=== PATIENT | male | born 1950 | race Caucasian/White ===

== ENCOUNTER 2016-12-04 20:14 | Emergency (ER) | payer MEDICARE, OTHER ==
[~2016-12-04] VITALS: Ht 182.9 cm; Wt 95.2 kg
[2016-12-04] MEDS ORDERED: KEFLEX500 MG PO (21:16)
== END 2016-12-04 21:27 | disposition home or self-care (01) ==
LOC: ED 20:14
PROC: 0HCQXZZ Extirpation of Matter from Finger Nail, External Approach (ICD-10-PCS; principal; 2016-12-04)
DX: S60.453A Superficial foreign body of left middle finger, initial encounter (principal); Z87.891 Personal history of nicotine dependence; W22.8XXA Striking against or struck by other objects, initial encounter
CPT/HCPCS: 10120; 90471; 90715; 99283

== ENCOUNTER 2023-01-23 16:27 | Emergency (ER) | payer OTHER, MEDICARE ==
[~2023-01-23] VITALS: Ht 182.9 cm; Wt 95.2 kg
[~2023-01-23 16:27] MED LIST: KEFLEX500 MG PO
[2023-01-23] MEDS ORDERED: LISINOPRIL-HCT1 EAC2 PO (16:44)
[2023-01-23 16:54] LABS: BASOPHILS 0.9 % (0-2); EOSINOPHILS 2.8 % (0-6); HEMATOCRIT 46.4 % (35.0-50.0); HEMOGLOBIN 15.7 g/dL (12.0-18.0); LYMPHOCYTES 26.7 % (24-44); MCH 30.8 (27-36); MCHC 33.8 g/dl (30-36); MCV 91.1 fl (81-99); MONOCYTES 9.7 % (0-12); NEUTROPHILS 59.9 % (39-80); PLATELET COUNT 288 K/uL (140-440); RBC 5.09 M/ul (4.3-5.7)
[2023-01-23 17:12] LABS: ALBUMIN 3.8 g/dL (3.4-5.0); ALBUMIN/GLOBULIN RATIO 1.03 (1.1-2.4); ANION GAP 12.5 (7-21); BILIRUBIN, TOTAL 0.5 ng/dL (0.2-1.0); BUN/CREATININE RATIO 15.38 (6.0-28.6); CALCIUM 9.4 mg/dL (8.5-10.1); CREATININE, SERUM 1.04 mg/dL (0.70-1.30); MAGNESIUM 2.1 mg/dL (1.8-2.4); POTASSIUM 3.5 mmol/L (3.5-5.1); PROTEIN, TOTAL 7.5 g/dL (6.4-8.2)
[2023-01-23] MEDS ORDERED: CYCLOBENZAPRINE10 MG PO (20:03)
[2023-01-23 20:48] VITALS: BP 163/92
--- NOTE | 2023-01-24 08:03 | EKG ---
[facility] [address] [facility] [place] [address] Signed Sinus tachycardia Left axis deviation Left bundle branch block Abnormal ECG No previous ECGs available Confirmed by PAU BUCIO MD ([id number]) on 01/24/2023 8:02:54 AM Electronically Signed By: PAU BUCIO 01/24/23 0803 PATIENT NAME: GEOVANNY KEATING IZABELLA Electrocardiogram DATE OF : 46 PHYSICIAN: PAU BUCIO REPORT #: [id number] REPORT IS CONFIDENTIAL AND NOT TO BE RELEASED WITHOUT AUTHORIZATION
== END 2023-01-23 20:48 | disposition home or self-care (01) ==
LOC: ED 16:27
PROVIDERS: Family Medicine
DX: R07.89 Other chest pain (principal); Z79.899 Other long term (current) drug therapy; Z87.891 Personal history of nicotine dependence
CPT/HCPCS: 36415; 71045; 80053; 83735; 83880; 84484; 85025; 93005; 93010

== ENCOUNTER 2024-07-23 10:50 | Day surgery (SDC) | payer OTHER ==
[2024-07-17 09:15] VITALS: BP 147/83
[~2024-07-23] VITALS: Ht 182.9 cm; Wt 80.0 kg
[~2024-07-23 10:50] MED LIST changes: +ALDACTONE25 MG PO; +ASPIRIN81 MG PO; +CEFAZOLIN SODIUM 2 GM/20 ML SYR IV SCH; +CYCLOBENZAPRINE10 MG PO; +ENTRESTO 49 MG1 EACH PO; +IBLOOD GLUCOSE TEST STRIP 1 EA TEST VI PRN; +JARDIANCE10 MG PO; +LACTATED RINGER'S 1,000 ML IV SCH; +LIDOCAINE HCL 1% 5 ML SDV INJ ONE; +LISINOPRIL-HCT1 EAC2 PO; +METOPROLOL TA37.5 MG PO; +MIDAZOLAM HCL 5 MG/5 ML VIAL IV PRN; +SUPER CALCIUM600 MG PO; +VITAMIN B-12100 MCG PO; +VITAMIN D325 MC3 PO; +fentaNYL citrate 100 MCG/2 ML VIAL IV PRN
[2024-07-23 11:07] VITALS: BP 135/81
[2024-07-23] MEDS ORDERED: LIDOCAINE HCL 2% 5 ML SDV ONE (12:15)
[2024-07-23] MEDS ORDERED: propofoL 200 MG/20 ML VIAL ONE (12:15)
[2024-07-23] MEDS ORDERED: ePHEDrine sulfate 50 MG/ML AMP ONE (12:37)
--- NOTE | 2024-07-23 13:40 | NUR ---
07/23/24 1340 Tamara Bautista 1320 PT ARRIVED IN PACU SLEEPY. ABD SOFT AND PASSING FLATUS. 1330 SITTING UP IN BED. NO C/O'S. 1340 DR AT BEDSIDE TALKING TO PT. ALL QUESTIONS ANSWERED.
[2024-07-23 13:44] VITALS: BP 106/54
--- NOTE | 2024-07-23 14:37 | OR ---
[facility] [address] [place], [place] [address] Signed DATE OF OPERATION: 07/23/2024 SURGEON: Purvi Nguyễn MD PREOPERATIVE DIAGNOSES: 1. Personal history of colonic polyps in 2005 at age 56. 2. Cecal diverticulum. 3. Internal hemorrhoids. 4. Guaiac positive stool. POSTOPERATIVE DIAGNOSES: 1. 1.5 x 3 cm sessile polyp at mid to distal right colon (snare, clip x2, tattoo). 2. 3 mm and 6 mm polyps at base of cecum (hot biopsy, snare). 3. Minimal sigmoid diverticulosis. 4. Moderate internal hemorrhoids. PROCEDURE: Colonoscopy with snare polypectomy, hot biopsy and injection of tattoo. ESTIMATED BLOOD LOSS: None. INDICATIONS: Norberto is a 74-year-old gentleman, who came to me in 2005 at the age of 56 for his initial screening colonoscopy. He had a 10 mm tubulovillous adenomatous polyp at 20 cm. He had a couple of hyperplastic polyps as well. He had a diverticulum near the cecum. He also had internal hemorrhoids. We had asked him to follow up in three years. For some reason, he never came back. Part of that I think was his heart history and the COVID pandemic. More recently, a stool sample came back guaiac positive. He is also taking aspirin. He now has a pacemaker and he said his heart is much better with an ejection fraction from 25% back up to 60%. He did well on the stress test in October of 2023 without any ischemia. He said he feels much better. He still consumes three beers in a day. He has been asked to see me for a followup colonoscopy given his guaiac-positive stool sample. In the office, I gave him our brochure on colonoscopy. We reviewed the nature of the test. There is risk including, but not limited to gas bloating, crampy abdominal pain, bleeding, perforation requiring surgery, and missed diagnosis. We also reviewed the written instructions for the bowel prep line by line. We had him hold the aspirin 3 days prior to the procedure. Also because of his heart history and his daily alcohol consumption, we asked for monitored anesthesia care with propofol infusion. That worked out very well for him today. He also received some Electronically Signed By: PURVI NGUYỄN MD 07/23/24 1437 PATIENT NAME: NORBERTO KEATING OPERATIVE REPORT DATE OF : 46 REPORT #: [id number] PHYSICIAN: PURVI NGUYỄN MD PCP: ANA BANUELOS PAC REPORT IS CONFIDENTIAL AND NOT TO BE RELEASED WITHOUT AUTHORIZATION [facility] [address] [place] [id number] Signed Ancef because of his pacemaker/defibrillator. He understands an adult person has to take him home afterwards. He had expressed understanding and wished to proceed. DESCRIPTION OF PROCEDURE: Norberto was taken into the endoscopy suite and placed in the left lateral decubitus position. He was given monitored anesthesia care with propofol infusion per our nurse contract loader. A digital rectal exam was performed. No external hemorrhoids. Good sphincter tone. No masses. His prostate is somewhat small, but it is indurated. The adult colonoscope had been introduced and advanced all around into the cecum under direct visualization of the camera without difficulty. His prep was quite good. We could easily see the appendiceal orifice and the ileocecal valve. We used the snare and the hot biopsy forceps to remove the two polyps in the base of the cecum and placed them into the same specimen jar. Back in the distal right colon just before the blue discoloration for the hepatic flexure, he had a sessile polyp measuring 1.5 x 3 cm along the . It took three bites of our snare and three bites of the hot biopsy forceps to remove that completely. We captured the three large pieces in our net and brought that out for review. We went back and placed two clips back together. We then injected a tattoo as well. The scope was then withdrawn. We saw some diverticula in the sigmoid colon. They are average in size, few in number and scattered about. The rectum was unremarkable. Upon retroflexion of the scope, he does have moderate internal hemorrhoid columns. After this, the gas was suctioned out and the colonoscope removed. Norberto tolerated the procedure quite well. RECOMMENDATIONS: I will see Norberto back in my office in 7 to 14 days to review his biopsy results. Depending on the pathology report, we might consider another short interval for followup colonoscopy. Purvi Nguyễn MD ALB/MODL /[id number] cc: Purvi Nguyễn MD [facility] [place] Electronically Signed By: PURVI NGUYỄN MD 07/23/24 1437 PATIENT NAME: NORBERTO KEATING OPERATIVE REPORT DATE OF : 46 REPORT #: [id number] PHYSICIAN: PURVI NGUYỄN MD PCP: ANA BANUELOS PAC REPORT IS CONFIDENTIAL AND NOT TO BE RELEASED WITHOUT AUTHORIZATION [address] [place], [place] [address] Signed Copies: PURVI NGUYỄN MD ~ Electronically Signed By: PURVI NGUYỄN MD 07/23/24 1437 PATIENT NAME: NORBERTO KEATING OPERATIVE REPORT DATE OF : 46 REPORT #: [id number] PHYSICIAN: PURVI NGUYỄN MD PCP: ANA BANUELOS PAC REPORT IS CONFIDENTIAL AND NOT TO BE RELEASED WITHOUT AUTHORIZATION
--- NOTE | 2024-07-25 11:16 | PATH ---
[facility] [address] [place], [place] [address] Signed SPECIMEN(S): A MID CECUM COLON POLYP SPECIMEN(S): B DISTAL ASCENDING COLON POLYP SPECIMEN SOURCE: A. MID CECUM COLON POLYP B. DISTAL ASCENDING COLON POLYP CLINICAL HISTORY: Guaiac positive stool, history of polyps, polyps, diverticulosis, internal hemorrhoids FINAL PATHOLOGIC DIAGNOSIS: A. Cecum, mid, polypectomy: - Tubular adenoma B. Colon, distal ascending, polypectomy: - Tubular adenoma BRP MICROSCOPIC EXAMINATION: Histologic sections of all submitted blocks are examined by light microscopy. These findings, together with the gross examination, support the pathologic diagnosis. GROSS DESCRIPTION: A. The specimen, labeled and designated "Quique, Ayala., mid cecum polypectomy per requisition," is received in formalin and consists of 3 villanueva tissue fragments ranging from 0.2 to 0.6 cm in greatest dimension. The specimen is entirely submitted in cassette A1. B. The specimen, labeled and designated "Quique, G., distal ascending/right colon polypectomy per requisition," is received in formalin and consists of 4 villanueva tissue fragments ranging from 0.2 to 0.6 cm in greatest dimension. Also received are 2 villanueva-red polyps measuring 1 to 1.5 cm in greatest dimension. The resection margin of the smallest polyp is inked blue while the resection margin of the largest polyp is inked black. The specimens are serially sectioned and entirely submitted cassette B1 and B2. AA (under the direct supervision of a pathologist) The Gross Description was prepared using a voice recognition system. The report was reviewed for accuracy; however, sound-alike word errors, addition and/or deletions may occur. If there is any PATIENT NAME: GEOVANNY KEATING PATHOLOGY DATE OF : 46 REPORT #: [id number] PHYSICIAN: GEORGI HERNANDEZ PCP: ANA BANUELOS PAC REPORT IS CONFIDENTIAL AND NOT TO BE RELEASED WITHOUT AUTHORIZATION [facility] [address] [place], [place] [address] Signed question about this report, please contact Client Services. ADDITIONAL NOTES: Immunohistochemical and/or in situ hybridization studies if performed in this case included appropriate positive controls that reacted as expected. This test was developed and its performance characteristics determined by [facility]. It has not been cleared or approved by the U.S. Food and Drug Administration. The FDA has determined that such clearance or approval is not necessary. This test is used for clinical purposes. It should not be regarded as investigational or for research. [facility] is certified under the Clinical Laboratory Improvement Amendments of 1988 (CLIA) as qualified to perform high complexity clinical laboratory testing. PERFORMING LABORATORY: Technical component was performed by [facility], [address] [place] [address] (CLIA# [id number]). Professional interpretation was performed by [facility], [address] [place] [address] (CLIA#: [id number]). Diagnostician: Hebert Norton MD Pathologist Electronically Signed 07/25/2024 Copies: ~ PATIENT NAME: GEOVANNY KEATING PATHOLOGY DATE OF : 46 REPORT #: [id number] PHYSICIAN: GEORGI PATHOLOGY PCP: ANA BANUELOS PAC REPORT IS CONFIDENTIAL AND NOT TO BE RELEASED WITHOUT AUTHORIZATION
== END 2024-07-23 13:58 | disposition home or self-care (01) ==
LOC: DS 10:50
PROVIDERS: ATTEND Colon & Rectal Surgery
PROC: 0DBF8ZZ Excision of Right Large Intestine, Via Natural or Artificial Opening Endoscopic (ICD-10-PCS; 2024-07-23)
PROC: 3E0H8KZ Introduction of Other Diagnostic Substance into Lower GI, Via Natural or Artificial Opening Endoscopic (ICD-10-PCS; 2024-07-23)
PROC: 0DBH8ZZ Excision of Cecum, Via Natural or Artificial Opening Endoscopic (ICD-10-PCS; principal; 2024-07-23 13:10)
DX: D12.0 Benign neoplasm of cecum (principal); D12.2 Benign neoplasm of ascending colon; K57.30 Diverticulosis of large intestine without perforation or abscess without bleeding; K64.8 Other hemorrhoids; R19.5 Other fecal abnormalities; I11.0 Hypertensive heart disease with heart failure; I50.20 Unspecified systolic (congestive) heart failure; E78.00 Pure hypercholesterolemia, unspecified; M81.0 Age-related osteoporosis without current pathological fracture; M19.90 Unspecified osteoarthritis, unspecified site; Z79.82 Long term (current) use of aspirin
CPT/HCPCS: 00811; 88305; J0690; J2003; J2704; J7121